=== PATIENT | female | born 2000 | race Caucasian/White ===

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

== ENCOUNTER 2021-12-26 23:56 | Inpatient (IN) ==
[~2021-12-26 23:56] MED LIST: *HR* Nalbuphine 10 MG/ML AMPUL IV PRN; Famotidine 20 MG/2 ML VIAL IVP PRN; Metoclopramide 10 MG/2 ML VIAL IVP PRN; Naloxone 0.4 MG/ML INJ IVP PRN; Ondansetron 4 MG/2 ML VIAL IVP PRN; Penicillin G Potassium 5,000,000 UNIT in 0.9 % Sodium Chloride Mini Bag 100 ML IVPB ONE
[2021-12-27] MEDS ORDERED: Ringers Solution, Lactated 1,000 ML ONE
[2021-12-27] MEDS: Betamethasone Acet/SodPhos 30 MG/5 ML VIAL IM SCH (00:30)
[2021-12-27] MEDS: Ringers Solution, Lactated 1,000 ML IVC SCH ×3 (00:31→17:46)
[2021-12-27 00:40] LABS: Basophils % 0.3 %; Eosinophils % 0.4 %; Hematocrit 36.7 % (35.3-44.9); Hemoglobin 12.7 g/dL (11.5-15.4); Immature Granulocytes % 0.9 % (0-4); Lymphocytes # 1.1 K/mcL (0.6-4.6); Lymphocytes % 10.6 %; Mean Corpuscular HGB Conc 34.6 g/dL (31.6-35.5); Mean Corpuscular Hemoglobin 31.4 pg (28.0-33.3); Mean Corpuscular Volume 90.8 fL (83.0-100.0); Mean Platelet Volume 9.2 fL (9.4-12.4); Monocytes # 0.7 K/mcL (0.0-1.3); Monocytes % 6.9 %; Neutrophils # 8.6 K/mcL (1.6-8.9); Platelet Count 248 K/mcL (140-400); Red Blood Count 4.04 M/mcL (3.82-4.97); Red Cell Distribution Width 12.4 % (11.5-14.5); Segmented Neutrophils % 80.9 %; White Blood Count 10.6 K/mcL (4.3-11.1)
[2021-12-27 00:49] LABS: Amphetamine Screen,Urine Negative ng/mL (Cutoff=1000); Barbiturate Screen,Urine Negative ng/mL (Cutoff=200); Benzodiazepines Screen,Urine Negative ng/mL (Cutoff=200); Cannabinoid Screen,Urine Negative ng/mL (Cutoff = 50); Cocaine Screen,Urine Negative ng/mL (Cutoff= 300); Opiate Screen,Urine Negative ng/mL (Cutoff=300); Phencyclidine Screen,Urine Negative ng/mL (Cutoff=25)
[2021-12-27 01:01] LABS: Iron 40 mcg/dL (50-170)
[2021-12-27 02:47] LABS: % Iron Saturation 7 % (15-50); Transferrin 387 mg/dL (203-362)
[2021-12-27 03:09] LABS: Influenza A PCR Negative (Negative); Influenza B PCR Negative (Negative); Resp. Syncytial Virus PCR Negative (Negative); SARS-CoV-2 by PCR (In House) Negative (Negative)
[2021-12-27 03:30] LABS: Rubella IgG Antibody POSITIVE (POSITIVE); Varicella Zoster IgG Antibody Positive
[2021-12-27 03:42] LABS: Estimated Average Glucose 97 mg/dl
[2021-12-27] MEDS ORDERED: Penicillin G Potassium 2,500,000 UNIT/105 ML MLS IVPB SCH (04:00)
[2021-12-27] MEDS ORDERED: EPHEDrine 50 MG/ML VIAL IVP PRN (06:51)
[2021-12-27] MEDS ORDERED: Epidural Premix (fent/bupiv) 110 ML EP SCH (07:00)
[2021-12-27] MEDS ORDERED: Ampicillin 1,000 MG in 0.9 % Sodium Chloride Mini Bag 100 ML IVPB SCH ×2 (09:00→12:00)
[2021-12-27] MEDS ORDERED: Azithromycin 250 MG TABLET PO SCH (09:00)
[2021-12-27] MEDS: Penicillin G Potassium 2,500,000 UNIT/105 ML MLS IVPB SCH ×4 (09:48→21:45)
[2021-12-28] MEDS: Betamethasone Acet/SodPhos 30 MG/5 ML VIAL IM SCH (00:29)
[2021-12-28] MEDS: Penicillin G Potassium 2,500,000 UNIT/105 ML MLS IVPB SCH (01:47)
[2021-12-28] MEDS ORDERED: Lidocaine 1% 20 ML MDV ONE (03:18)
[2021-12-28] MEDS ORDERED: Oxytocin 20 units/ LR 1000 mL 20 UNIT/1,000 ML BAG IVC ONE (03:23)
[2021-12-28] MEDS ORDERED: Measles/Mumps/Rubella Vacc 0.5 ML VIAL SQ PRN (04:12)
[2021-12-28] MEDS ORDERED: Rho Immune Globulin 1,500 UNIT SYRINGE IM PRN (04:12)
[2021-12-28] MEDS ORDERED: Ondansetron ODT 4 MG TAB.RAPDIS SL PRN (04:12)
[2021-12-28] MEDS ORDERED: Oxytocin 20 units/ LR 1000 mL 20 UNIT/1,000 ML BAG IVC SCH (04:12)
[2021-12-28] MEDS ORDERED: Lanolin 7 G OINT...G. TP PRN (04:12)
[2021-12-28] MEDS ORDERED: Benzocaine/Menthol 56 GM AEROSOL SPRAY TP PRN (04:12)
[2021-12-28] MEDS: Ibuprofen 600 MG TABLET PO SCH ×3 (06:53→23:58)
[2021-12-28] MEDS: Prenatal Vit/FA 1 EACH TABLET PO SCH (08:17)
[2021-12-28] MEDS: Acetaminophen 325 MG TABLET PO SCH ×4 (08:25→23:59)
[2021-12-28 20:35] VITALS: O2SAT 97
[2021-12-29 05:21] LABS: Basophils % 0.1 %; Hematocrit 32.5 % (35.3-44.9); Hemoglobin 11.3 g/dL (11.5-15.4); Lymphocytes # 1.4 K/mcL (0.6-4.6); Lymphocytes % 7.4 %; Mean Corpuscular HGB Conc 34.8 g/dL (31.6-35.5); Mean Corpuscular Hemoglobin 31.9 pg (28.0-33.3); Mean Corpuscular Volume 91.8 fL (83.0-100.0); Mean Platelet Volume 9.3 fL (9.4-12.4); Monocytes # 1.1 K/mcL (0.0-1.3); Monocytes % 5.7 %; Neutrophils # 16.2 K/mcL (1.6-8.9); Platelet Count 231 K/mcL (140-400); Red Blood Count 3.54 M/mcL (3.82-4.97); Red Cell Distribution Width 12.4 % (11.5-14.5); Segmented Neutrophils % 85.8 %; White Blood Count 18.9 K/mcL (4.3-11.1)
[2021-12-29 07:22] VITALS: BP 94/53; PULSE 81; TEMP 98
[2021-12-29] MEDS: Acetaminophen 325 MG TABLET PO SCH (10:17)
[2021-12-29] MEDS: Prenatal Vit/FA 1 EACH TABLET PO SCH (10:17)
== END 2021-12-29 18:48 | disposition home or self-care (01) | DRG 560 ==
LOC: 1NENULAB → 1NENUOBS 12-28 06:46
PROVIDERS: ADMIT Obstetrics & Gynecology; ATTEND Obstetrics & Gynecology